=== PATIENT | female | born 1945 | race Caucasian/White ===

== ENCOUNTER → 2018-10-16 | Outpatient (CLI) | payer MEDICARE ==
[~2018-10-16] MED LIST: CHOL100059 PO; GLUC-130 PO; GLUCOSAMINE PO; LEVO50TA86 PO; MULT-1124 PO; RIS150PT PO; SIMV-42 PO; SIMV-49 PO; TRAZ50 PO; TRIA15OI20 TP
--- NOTE | 2018-10-16 16:38 | RADIOLOGY IMAGING REPORT ---
FACILITY: [facility] - [place] PATIENT NAME: Sharyn Patel : 1945 MR: [id number] V: [id number] EXAM DATE: ORDERING PHYSICIAN: LAZ WHITING TECHNOLOGIST: Location: [facility] [place] Patient: Sharyn Patel : 1945 Visit/Account:[id number] Date of Sevice: 10/16/2018 Exam type: SHOULDER MIN 2 VIEWS RIGHT History: Right shoulder pain Comparison: None. Findings: Three views of the right shoulder were submitted there is no evidence of acute fracture or dislocatio n or significant arthritic change. IMPRESSION: 1. No acute osteoarticular abnormality of the right shoulder seen Report Dictated By: Sobia Reyes MD at 10/16/2018 4:33 PM Report E-Signed By: Sobia Reyes MD at 10/16/2018 4:33 PM WSN:[email or web address]
--- NOTE | 2018-10-16 16:40 | RADIOLOGY IMAGING REPORT ---
FACILITY: [facility] - [place] PATIENT NAME: Sharyn Patel : 1945 MR: [id number] V: [id number] EXAM DATE: ORDERING PHYSICIAN: LAZ WHITING TECHNOLOGIST: Location: [facility] Patient: Sharyn Patel : 1945 Visit/Account:[id number] Date of Sevice: 10/16/2018 Exam type: CERVICAL SPINE 2 OR 3 VIEW History: Neck pain Comparison: None. Findings: Three views of the cervical spine were submitted. There is mild disc space narrowing at C4-5 and C5- 6 moderate disc space narrowing C6-7 and mild disc space narrowing at C7-T1. There is a 2 mm anterio r listhesis of C7 with respect to T1 likely on degenerative basis. Extensive degenerative facet join t changes are noted throughout the neck, more prominent on the left relative to the right. No eviden ce of acute fractures or prevertebral soft tissue swelling IMPRESSION: 1. Extensive multilevel spondylotic changes of the cervical spine as described Report Dictated By: Sobia Reyes MD at 10/16/2018 4:33 PM Report E-Signed By: Sobia Reyes MD at 10/16/2018 4:35 PM WSN:[email or web address]
== END ==
LOC: RAD 14:37
PROVIDERS: ATTEND Family Medicine
DX: M25.511 Pain in right shoulder (principal); M54.2 Cervicalgia
CPT/HCPCS: 72040